=== PATIENT | female | born 1980 | race Caucasian/White ===

== ENCOUNTER 2024-02-02 17:13 | Emergency (ER) | payer BC, SELFPAY ==
[2024-02-02 17:17] VITALS: BP 191/111
--- NOTE | 2024-02-02 18:18 | ED.GENMED ---
History of Present Illness
General
Chief Complaint: Vaginal Bleeding
Source: patient
Exam Limitations: none
Time Seen by Provider: 02/02/24 17:58
Nursing documentation reviewed up to this point in time: agreed with
Travel History
Have you had any contact with someone who has COVID-19?: No
Do you have any symptoms of coronavirus? Fever > 100 degrees, chills, cough, shortness of breath, sore throat, loss of taste or smell, muscle aches, or headache?: No
History of Present Illness
History of Present Illness:
43 yo with h/o HTN presents stating for past year periods have been heavier but starting 3 days ago, she started her period and it is even heavier (no clots) and twice a day for the past two days had sudden episodes of 'horrendous'pain lasting abut
20 minutes, associated with vomiting once during today's episode and feeling faint in [employer] during one episode yesterday. Motrin does relieve the pain. She is pain free. She used 4-5 pads today, 6-7 past 2 days, bleeding does seem to be improving.
Past History
Past History
ED Past Medical History: HTN (stopped her Lisinopril when she ran out has not renewed; has not taken in several months) and Other (Chronic back pain)
ED Past Surgical History: Orthopedic (back surger)
Social History
Tobacco: Non-smoker
Personal:
Living: with family
Employment: Employed
Family History
Family History: Other (Noncontributory)
Review of Systems
Review of Systems
Allergies reviewed?: Yes
All Other Systems: ROS reviewed and negative except as documented in HPI and ROS
Constitutional: Denies fever or fatigue
Respiratory: Denies trouble breathing
Cardiac: Denies chest pain
ABD/GI: Reports abdominal pain and vomiting (vomited once today when pain was significant); Denies nausea, bloody stools or black stools
: Denies dysuria, frequency, difficulty voiding or urgency
Musculoskeletal: Reports no symptoms
Skin: Reports no symptoms
Neurological: Reports no symptoms
Phy Exam
Physical Exam
Physical Exam:
GENERAL: No acute distress. A&Ox3.
CONSTITUTIONAL: Afebrile.
RESPIRATORY: Regular respirations, nonlabored, lungs clear.
CARDIOVASCULAR: Regular rate and rhythm, no murmurs, no rubs.
GI: Soft, nontender, normal BS
MUSCULOSKELETAL: Moves with ease. Well perfused.
SKIN: Warm, dry, pink
PSYCH: Normal mood and affect. Well kept, interactive and appropriate
NEUROLOGIC: Awake, alert and oriented. No focal neurological deficits
Course
Orders/Labs/Results
Orders:
Orders
02/02/24 18:13
Test Result ONCE
02/02/24 18:16
US Pelvis W Transvag Combined Urgent
Comment:
Reason For Exam: significant pain with increased menstrual bleeding
02/02/24 18:28
Complete Blood Count/With Diff Urgent
Comprehensive Metabolic Panel Urgent
HCG, Serum Qualitative Screen Urgent
02/02/24 20:16
Urinalysis Reflex To Culture Urgent
Date Specimen was Collected: 02/02/24
Time Specimen was Collected: 20:13
Urine Microscopic Reflex Cult Urgent
Abnormal Lab Results
02/02/24 02/02/24
18:28 20:16
Hgb 11.6 L g/dL
(12.0-16.0)
Hct 33.5 L %
(37.0-47.0)
MCV 75.3 L fL
(81.0-99.0)
MCH 26.1 L pg
(27.0-31.0)
MPV 10.7 H fL
(7.4-10.4)
Glucose 101 H mg/dl
(70-99)
Ur Occult Blood Reflex 3+ A
(Negative)
Urine RBC 3-6 A /HPF
(0-2)
02/02/24 18:28
02/02/24 18:28
Vital Signs
Initial and Last Documented VS:
Initial Vital Signs
Temp Pulse Resp BP Pulse Ox
98.9 F 80 20 191/111 100
02/02/24 17:17 02/02/24 17:17 02/02/24 17:17 02/02/24 17:17 02/02/24 17:17
Last Documented Vital Signs
Temp Pulse Resp BP Pulse Ox
98.9 F 80 16 172/95 99
02/02/24 17:17 02/02/24 20:19 02/02/24 20:19 02/02/24 20:19 02/02/24 20:19
MDM/Problems Addressed
Differential Diagnosis Includes:
dysmenorrhea, fibroids, polyps, adenomyosis, menopausal/hormonal
MDM/Problems Addressed:
43 yo with h/o HTN presents stating for past year periods have been heavier but starting 3 days ago, she started her period and it is even heavier (no clots) and twice a day for the past two days had sudden episodes of 'horrendous'pain lasting abut
20 minutes, associated with vomiting once during today's episode and feeling faint in [employer] during one episode yesterday. Motrin does relieve the pain. She is pain free.
She used 4-5 pads today, 6-7 past 2 days, bleeding does seem to be improving.
1900 p.m.
CBC with no clinically significant abnormality
CMP normal
hCG negative
Pelvic/transvaginal ultrasound radiology report read:
IMPRESSION:
Submucosal uterine fibroid.
Has had no significant pain during visit.
Bleeding is improving, no indication for Lysteda (Tranexamic acid)
She will continue NSAID since it helps, and follow up with her [facility] Dr. Felipe
Copy of US and labs sent with her.
*Critical Care Note
Total Time (30-74mins, 75-104mins- exclusive of procedures): Not Applicable
ED Attending Note
-
Portions of this chart may have been created with voice recognition software.� Occasional wrong word or��sound alike� substitutions may have occurred due to the inherent limitations of voice recognition software.
Discharge Plan
Departure
Patient Disposition: Home (Routine Discharge)
Date of Disposition: 02/02/24
Time of Disposition: 20:17
Patient with high blood pressure during this ER visit?: Yes
Condition: Good
Discharge Problem:
Uterine fibroid
Instructions: Uterine fibroids, Abdominal Pain, Adult ED, BLOOD PRESSURE
Prescriptions:
New
lisinopril 10 mg tablet
10 mg PO DAILY Qty: 30 0RF
No Action
Clarinex
5 mg PO PRN PRN (Reason: allergy)
Flonase Nasal [place]:
1 spray intranasal DAILY PRN (Reason: allergy)
Sumatriptan
25 mg PO PRN PRN (Reason: headache)
Referrals:
Your, [facility]NA[facility] doctor [Other] - Next open appointment
Keaton Carmichael MD [Family Provider] -
Activity Restrictions/Additional Instructions:
As we discussed, see your [facility]NA[facility] doctor next available appointment.
Ibuprofen 600 mg every 6 hours as needed for pain.
I sent a prescription to your pharmacy for Lisinopril. Please make appointment with your PCP for eval and further medication for your BP
Interventions
Interventions:
*Risk Screen - Suicide Last Done: 02/02/24 17:37
*General Assessment Last Done: 02/02/24 17:19
*Neglect/Abuse Screening Last Done: 02/02/24 17:37
ED- Fall Risk Assessment Last Done: 02/02/24 20:43
*ED COVID-19 Vaccine History Last Done: 02/02/24 17:19
*Nursing Disposition Last Done: 02/02/24 20:43
ED-Female Genitourinary Assessment Last Done: 02/02/24 18:32
Discharge Date and Time
Discharge Date/Time: 02/02/24 20:45
Print Language: WELSH
[2024-02-02 18:35] LABS: % Basophils 0.5 % (0-2); % Eosinophils 1.5 % (0-6); % Immature Granulocytes 0.2 % (0-0.5); % Lymphocytes 27.5 % (20.5-51.1); % Monocytes 6.4 % (1.7-9.3); % Neutrophils 63.9 % (42.2-75.2); Absolute Eosinophils 0.1 10^3/uL (0-0.7); Absolute Lymphocytes 1.8 10^3/uL (1.2-3.4); Absolute Monocytes 0.4 10^3/uL (0.1-0.6); Absolute Neutrophils 4.2 10^3/uL (1.4-6.5); Hematocrit 33.5 % (37.0-47.0); Hemoglobin 11.6 g/dL (12.0-16.0); Mean Corp Hgb Conc. 34.6 g/dL (33.0-37.0); Mean Corpuscular Hgb 26.1 pg (27.0-31.0); Mean Corpuscular Volume 75.3 fL (81.0-99.0); Mean Platelet Volume 10.7 fL (7.4-10.4); Nucleated Red Blood Cells % 0 %; Platelet Count 258 10^3/uL (130-400); Red Blood Cell Count 4.45 10^6/uL (4.20-5.40); Red Cell Dist. Width 13.2 % (11.5-14.5); White Blood Cell Count 6.6 10^3/uL (4.8-10.8)
[2024-02-02 18:45] LABS: HCG, Serum Qualitative Screen Negative
[2024-02-02 18:54] LABS: ALT (SGPT) 17 U/L (0-35); AST (SGOT) 18 U/L (14-36); Alkaline Phosphatase 69 U/L (38-126); Blood Urea Nitrogen 14 mg/dl (7-17); Calcium 9.3 mg/dl (8.4-10.2); Carbon Dioxide 29 mmol/L (22-30); Chloride 104 mmol/L (98-107); Glucose 101 mg/dl (70-99); Potassium 3.6 mmol/L (3.5-5.1); Sodium 140 mmol/L (135-145); Total Bilirubin 0.2 mg/dl (0.2-1.3); Total Protein 6.8 g/dl (6.3-8.2); eGFR > 60.00
[2024-02-02 20:19] VITALS: BP 172/95
[2024-02-02 20:25] LABS: Urine Albumin Negative (Neg - Trace); Urine Bilirubin Negative (Negative); Urine Character Clear (Clear); Urine Color Straw; Urine Glucose Negative (Negative); Urine Ketone Negative (Negative); Urine Leukocyte Negative (Negative); Urine Nitrite Negative (Negative); Urine Occult Blood 3+ (Negative); Urine Urobilinogen Negative (Neg - 1+)
[2024-02-02 20:34] LABS: Urine Squamous Cell 0-2 /LPF (Few); Urine White Cell 0-2 /HPF (0-5)
== END 2024-02-02 20:45 | disposition home or self-care (01) ==
LOC: EMR 17:13
PROVIDERS: Registered Nurse; EMERGENCY PHYSICIAN Emergency Medicine; FAMILY PHYSICIAN Ophthalmology
DX: D25.0 Submucous leiomyoma of uterus (principal); I10 Essential (primary) hypertension
CPT/HCPCS: 99284; 76830; 76856; 80053; 81003; 81015; 84703; 85025

== ENCOUNTER 2024-09-12 18:49 | Emergency (ER) | payer BC, SELFPAY ==
[2024-09-12 18:51] VITALS: BP 132/85
[2024-09-12 19:08] LABS: % Basophils 0.5 % (0-2); % Eosinophils 2.3 % (0-6); % Immature Granulocytes 0.2 % (0-0.5); % Lymphocytes 29.9 % (20.5-51.1); % Monocytes 5.5 % (1.7-9.3); % Neutrophils 61.6 % (42.2-75.2); Absolute Eosinophils 0.1 10^3/uL (0-0.7); Absolute Lymphocytes 1.8 10^3/uL (1.2-3.4); Absolute Monocytes 0.3 10^3/uL (0.1-0.6); Absolute Neutrophils 3.8 10^3/uL (1.4-6.5); Hematocrit 33.4 % (37.0-47.0); Hemoglobin 11.3 g/dL (12.0-16.0); Mean Corp Hgb Conc. 33.8 g/dL (33.0-37.0); Mean Corpuscular Hgb 26.7 pg (27.0-31.0); Mean Corpuscular Volume 78.8 fL (81.0-99.0); Mean Platelet Volume 10.4 fL (7.4-10.4); Nucleated Red Blood Cells % 0 %; Platelet Count 230 10^3/uL (130-400); Red Blood Cell Count 4.24 10^6/uL (4.20-5.40); Red Cell Dist. Width 13.2 % (11.5-14.5); White Blood Cell Count 6.1 10^3/uL (4.8-10.8)
[2024-09-12 19:23] LABS: ALT (SGPT) 20 U/L (0-35); AST (SGOT) 21 U/L (14-36); Albumin 4.1 g/dl (3.5-5.0); Alkaline Phosphatase 55 U/L (38-126); Blood Urea Nitrogen 14 mg/dl (7-17); Carbon Dioxide 29 mmol/L (22-30); Chloride 101 mmol/L (98-107); Glucose 135 mg/dl (70-99); Potassium 3.9 mmol/L (3.5-5.1); Sodium 138 mmol/L (135-145); Total Bilirubin 0.3 mg/dl (0.2-1.3); Total Protein 6.8 g/dl (6.3-8.2); eGFR > 60.00
[2024-09-12 19:33] LABS: Troponin I < 0.012 ng/ml
[2024-09-12 20:00] VITALS: BP 113/67
--- NOTE | 2024-09-12 20:25 | ED.GENMED ---
History of Present Illness
General
Chief Complaint: Chest Pain
Source: patient
Exam Limitations: none
Time Seen by Provider: 09/12/24 19:54
History of Present Illness
History of Present Illness:
This is a 44 year old female that comes in with c/o chest heaviness. States that this started in the summer and her chest feels tight. State that it is like a Jose D horse and heaviness. States that she gets anxious. States that this happened a
couple of times after this. Then last night she had an episode of chest heaviness and it lasted for about 1-2 min. States that today she was at [employer] with her mom when she had this again but it was mild. States that she did have a chest cold about
2 weeks ago. States that she felt lightheaded and has a headache. Denies any fever, chills, SOB, abd pain, nausea, vomiting, diarrhea, urinary burning.
Past History
Past History
ED Past Medical History: HTN (stopped her Lisinopril when she ran out has not renewed; has not taken in several months) and Other (Chronic back pain, migraines, )
ED Past Surgical History: Orthopedic (Fusion L4-S1, Microdiscectomy)
Social History
Tobacco: Non-smoker
Alcohol: None
Personal:
Living: with family
Employment: Employed
Family History
Family History: Other (Noncontributory)
Review of Systems
Review of Systems
All Other Systems: ROS reviewed and negative except as documented in HPI and ROS
Constitutional: Reports no symptoms; Denies fever or chills
EENT: Reports no symptoms
Respiratory: Reports no symptoms; Denies cough or trouble breathing
Cardiac: Reports chest pain
ABD/GI: Reports no symptoms; Denies abdominal pain, nausea, vomiting or diarrhea
: Reports no symptoms; Denies dysuria, frequency or urgency
Musculoskeletal: Reports no symptoms
Skin: Reports no symptoms
Neurological: Reports headache and other (Lightheaded); Denies dizzy
Psychiatric: Reports no symptoms
Phy Exam
General Physical Exam
General Presentation: well appearing and no apparent distress
General age: appears stated age
General Skin: warm and dry
General Habitus: normal
General Mental: alert
General Hydration: appears well hydrated
ENT Exam
ENT Exam: TM's normal, pharynx normal and neck supple
Eye Exam
Eye Exam: EOMI
Cardiovascular Exam
Cardiovascular Exam: regular rate/rhythm, no edema, no murmur and normal peripheral pulses
Pulmonary Exam
Pulmonary Exam: lungs clear, no respiratory distress, no rales, chest non tender, no crackles, no rhonchi, no wheezing and no cough
Gastrointestinal Exam
Gastrointestinal Exam: normal bowel sounds, non tender, soft, no organomegaly, no pulsatile mass and non distended
Musculoskeletal Exam
Musculoskeletal Exam: full ROM and no edema
Skin Exam
Skin Exam: normal color, warm/dry, no rash and no petechia
Psychiatric Exam
Psychiatric Exam: normal mood/affect
Scores
Heart Score for Chest Pain Patients
STEMI patient?: No
History: Slightly or Non-Suspicious
ECG: Normal
Age: </= 45 years
Risk Factors: No Risk Factors
Troponin: </= Normal Limit
Heart Score for Chest Pain Patients: 0
Heart Score Risk: 2.5% MACE over next 6 weeks
Course
Orders/Labs/Results
Orders:
Orders
09/12/24 18:51
EKG [Electrocardiogram (*1)] Urgent
Reason for Study: Chest Pain
EKG- Treatment ONCE
09/12/24 19:00
Complete Blood Count/With Diff Urgent
Comprehensive Metabolic Panel Urgent
Troponin I Urgent
09/12/24 20:19
EKG- Treatment ONCE
CR Chest - 2 Views Urgent
Comment:
Reason For Exam: Chest pain
09/12/24 21:45
Troponin I Urgent
09/12/24 22:00
Electrocardiogram (*1) Urgent
Reason for Study: Chest Pain
Other Reason for Exam: Repeat with Troponin
Abnormal Lab Results
09/12/24
19:00
Hgb 11.3 L g/dL
(12.0-16.0)
Hct 33.4 L %
(37.0-47.0)
MCV 78.8 L fL
(81.0-99.0)
MCH 26.7 L pg
(27.0-31.0)
Glucose 135 H mg/dl
(70-99)
09/12/24 19:00
09/12/24 19:00
H/H slightly low. Anemia, Hyperglycemia Troponin <0.012
Second Troponin <0.012
Vital Signs
Initial and Last Documented VS:
Initial Vital Signs
Temp Pulse Resp BP Pulse Ox
98.4 F 88 16 132/85 100
09/12/24 18:51 09/12/24 18:51 09/12/24 18:51 09/12/24 18:51 09/12/24 18:51
Last Documented Vital Signs
Temp Pulse Resp BP Pulse Ox
98.4 F 73 16 113/67 97
09/12/24 18:51 09/12/24 20:30 09/12/24 20:30 09/12/24 20:00 09/12/24 20:30
MDM/Problems Addressed
Differential Diagnosis Includes:
Cardiac arrhythmia. GERD
MDM/Problems Addressed:
This is a 44 year old female that comes in with c/o chest tightness. State that this started in the summer and only last about 1-2 min. States that she had this last night and again today with chest heaviness.
Will check labs, Chest x-ray
back into see patient. Explained that both Troponin and chest x-ray are normal. Will have patient follow up with the family doctor for recheck. Explained that he may wish to have the patient wear a Holter monitor to see if there is any type of
Arrhythmia that is causing this discomfort. Return with any concerns.
Chronic conditions affecting care:
NA
Acute Exacerbation and/or Progression of Chronic Illness:
NA
*Radiology
Radiology exam reviewed: preliminary read by ED provider (Chest-No acute disease of the chest. )
*Pulse Oximetry
Patient hypoxic: no
*EKG
Interpreted by ED Provider?: Yes
Heart Rate: 79
Rate: normal
Rhythm: sinus
[place]: normal axis
Interval: normal interval
QRS Pattern: normal QRS
Ischemia: no ischemia
*Bar[employer]if[employer] Interpretation
Rate: normal
Heart Rate: 80
Rhythm: sinus
*Critical Care Note
Total Time (30-74mins, 75-104mins- exclusive of procedures): Not Applicable
ED Attending Note
-
Portions of this chart may have been created with voice recognition software.� Occasional wrong word or��sound alike� substitutions may have occurred due to the inherent limitations of voice recognition software.
Discharge Plan
Departure
Patient Disposition: Home (Routine Discharge)
Date of Disposition: 09/12/24
Time of Disposition: 22:19
Patient with high blood pressure during this ER visit?: No
Condition: Good
Covid-19: Not Applicable
Discharge Problem:
Chest pain
Instructions: Chest Pain PCP Follow Up
Prescriptions:
No Action
Clarinex
5 mg PO PRN PRN (Reason: allergy)
Flonase Nasal [place]:
1 spray intranasal DAILY PRN (Reason: allergy)
Sumatriptan
25 mg PO PRN PRN (Reason: headache)
lisinopril 10 mg tablet
10 mg PO DAILY Qty: 30 0RF
Referrals:
Keaton Carmichael MD [Family Provider] - Follow up in 2-3 days
Activity Restrictions/Additional Instructions:
As discussed, your blood work shows that you are anemia. Your chest x-ray is normal along with both Troponin that are specific for the heart. Please decrease any Caffeine intake as this will also cause acid reflux. Follow up with the family doctor
for recheck. They may wish to have you wear a Holter monitor to see if you have any arrhythmia's. IF YOU HAVE INCREASED OR CHANGING PAIN OR YOU HAVE ANY OTHER CONCERNS PLEASE RETURN TO THE EMERGENCY ROOM.
Interventions
Interventions:
*Risk Screen - Suicide Last Done: 09/12/24 18:51
*General Assessment Last Done: 09/12/24 18:51
*Neglect/Abuse Screening Last Done: 09/12/24 19:33
*ED COVID-19 Vaccine History Last Done: 09/12/24 18:51
ED- Cardiac Assessment Last Done: 09/12/24 20:29
Discharge Date and Time
Print Language: YAKUT
[2024-09-12 22:17] LABS: Troponin I < 0.012 ng/ml
== END 2024-09-12 22:35 | disposition home or self-care (01) ==
LOC: EMR 18:49
PROVIDERS: Clinical Nurse Specialist Family Health; EMERGENCY PHYSICIAN Emergency Medicine; FAMILY PHYSICIAN Ophthalmology
DX: R07.89 Other chest pain (principal); I10 Essential (primary) hypertension; Z98.1 Arthrodesis status
CPT/HCPCS: 99285; 71046; 80053; 84484; 85025; 93005

== ENCOUNTER → 2024-12-25 11:23 | Outpatient (REF) | payer BC, SELFPAY | LOC: HWWDC 11:23 | PROVIDERS: ATTENDING PHYSICIAN Obstetrics & Gynecology; FAMILY PHYSICIAN Nurse Practitioner | DX: Z12.31 Encounter for screening mammogram for malignant neoplasm of breast (principal) | CPT/HCPCS: 77063; 77067 ==

== ENCOUNTER → 2024-12-29 09:33 | Outpatient (REF) | payer BC, SELFPAY | LOC: WDC 09:33 | PROVIDERS: ATTENDING PHYSICIAN Obstetrics & Gynecology; FAMILY PHYSICIAN Nurse Practitioner | DX: R92.8 Other abnormal and inconclusive findings on diagnostic imaging of breast (principal) | CPT/HCPCS: 76642 ==